=== PATIENT | female | born 1985 | race Caucasian/White ===

== ENCOUNTER 2022-08-16 03:59 | Emergency (ER) | payer BC ==
[~2022-08-16] VITALS: Ht 172.7 cm; Wt 70.3 kg
--- NOTE | 2022-08-16 06:08 | NUR ---
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 PT AAOX4, AMBULATORY, IN NAD, IN BED LAYING COMFORTABLY, VITALS CHECKED.
--- NOTE | 2022-08-16 06:22 | NUR ---
URINE COLLECTED AND SENT TO LAB
[2022-08-16] MEDS ORDERED: ONDANSETRON HCL/PF 4 MG/2 ML VIAL IVP ONE (06:30)
[2022-08-16] MEDS ORDERED: MAG HYDROX/AL HYDROX/SIMETH 30 ML UDC PO ONE (06:30)
[2022-08-16] MEDS ORDERED: IV NS 0.9% 1,000 ML BAG IV ONE (06:30)
[2022-08-16] MEDS ORDERED: PANTOPRAZOLE 40 MG VIAL IV ONE (06:30)
[2022-08-16] MEDS ORDERED: LIDOCAINE VISCOUS 2% UD 15 ML UDC MM ONE (06:30)
[2022-08-16] MEDS ORDERED: MAG HYDROX/AL HYDROX/SIMETH 30 ML UDC ONE (06:35)
[2022-08-16] MEDS ORDERED: LIDOCAINE VISCOUS 2% UD 15 ML UDC ONE (06:35)
[2022-08-16] MEDS ORDERED: ONDANSETRON HCL/PF 4 MG/2 ML VIAL ONE (06:35)
[2022-08-16] MEDS ORDERED: PANTOPRAZOLE 40 MG VIAL ONE (06:35)
--- NOTE | 2022-08-16 06:40 | NUR ---
20GA TO RIGHT AC ESTABLISHED; BLOOD WORK COLLECTED, SENT TO LAB
[2022-08-16 06:54] LABS: BILIRUBIN,URINE NEGATIVE (NEGATIVE); COLOR,URINE YELLOW (YELLOW); LEUKOCYTE ESTERASE ,URINE NEGATIVE (NEGATIVE); NITRITE, URINE NEGATIVE (NEGATIVE); PROTEIN,URINE NEGATIVE (NEGATIVE); UGLUCOSE NEGATIVE (NEGATIVE); UROBILINOGEN,URINE 0.2 EU/dL (0.2)
--- NOTE | 2022-08-16 07:00 | NUR ---
US TECH AT BEDSIDE
[2022-08-16 07:05] LABS: BASOPHILS % (AUTO) 0.4 % (0.0-2.0); EOSINOPHILS % (AUTO) 12.7 % (0.0-6.0); HEMATOCRIT 36 % (33-45); HEMOGLOBIN 11.7 g/dL (11.5-14.8); LYMPHOCYTES # (AUTO) 2.2 K/uL (0.8-4.8); LYMPHOCYTES % (AUTO) 24.8 % (20.0-44.0); MEAN CORPUSCULAR HGB CONC 33 g/dl (31.0-36.0); MEAN CORPUSCULAR VOLUME 94 fL (82-100); MONOCYTES # (AUTO) 0.4 K/uL (0.1-1.30); MONOCYTES % (AUTO) 4.6 % (2.0-12.0); NEUTROPHILS % (AUTO) 57.5 % (43.0-81.0); PLATELET COUNT (AUTO) 254 K/uL (150-450); RED BLOOD CELL COUNT(AUTO) 3.81 MIL/uL (4.0-5.2); WHITE BLOOD COUNT (AUTO) 8.7 K/uL (4.3-11.0)
--- NOTE | 2022-08-16 07:10 | NUR ---
RECEIVED PT FROM BUN RN PT AWAKE AND ALERT US IN PROCESS AT BED SIDE
--- NOTE | 2022-08-16 07:10 | NUR ---
REPORT GIVEN TO SHAYLA FOR MELANI
[2022-08-16 07:26] LABS: CALCIUM, SERUM 9.1 mg/dL (8.5-10.1); CREATININE 0.8 mg/dL (0.6-1.3); POTASSIUM 4.5 mmol/L (3.5-5.1)
[2022-08-16 07:30] LABS: ALBUMIN 3.7 g/dL (3.4-5.0); BILIRUBIN,DIRECT 0.1 mg/dL (0.0-0.2); BILIRUBIN,TOTAL 0.2 mg/dL (0.2-1.0); TOTAL PROTEIN, SERUM 7.4 g/dL (6.4-8.2)
[2022-08-16] MEDS ORDERED: OMEP40CA21 PO (07:55)
--- NOTE | 2022-08-16 08:00 | NUR ---
DINESES ABDOMIN PAIN NO N/V RESTING AT THIS TIME
--- NOTE | 2022-08-16 08:15 | NUR ---
AT BED SIDE SPOOKING WITH PT ABOUT PLAN OF CARE and tx
--- NOTE | 2022-08-16 08:38 | NUR ---
IV removed. Catheter intact and site benign. Pressure and 4x4 applied to site. No bleeding noted.
--- NOTE | 2022-08-16 08:40 | NUR ---
Patient discharged to home in stable condition. Written and verbal after care instructions given. Patient verbalizes understanding of instruction.
[2022-08-16 08:42] VITALS: BP 105/61; TEMP 98.7
== END 2022-08-16 08:47 | disposition home or self-care (01) ==
LOC: EDUNIT# 03:59 → ER 04:19
DX: R10.13 Epigastric pain (principal); Z79.899 Other long term (current) drug therapy
CPT/HCPCS: 99285; 96374; 76705; 71045; 96361; 96375; 85025; 80048; 83690; 80076; 84703; 81003; 36415; J2405; J7030; C9113

== ENCOUNTER 2022-10-23 00:37 | Emergency (ER) | payer BC ==
[~2022-10-23] VITALS: Ht 175.3 cm; Wt 67.1 kg
[~2022-10-23 00:37] MED LIST: OMEP40CA21 PO
[2022-10-23] MEDS ORDERED: ONDANSETRON HCL/PF 4 MG/2 ML VIAL ONE (02:29)
[2022-10-23] MEDS ORDERED: FAMOTIDINE/PF INJ 20 MG/2 ML VIAL IV ONE (02:29)
[2022-10-23] MEDS ORDERED: MAG HYDROX/AL HYDROX/SIMETH 30 ML UDC ONE (02:29)
[2022-10-23] MEDS ORDERED: LIDOCAINE VISCOUS 2% UD 15 ML UDC ONE (02:29)
[2022-10-23] MEDS: FAMOTIDINE/PF INJ 20 MG/2 ML VIAL IV ONE (02:43)
[2022-10-23] MEDS: ONDANSETRON HCL/PF 4 MG/2 ML VIAL IVP ONE (02:43)
[2022-10-23] MEDS: MAG HYDROX/AL HYDROX/SIMETH 30 ML UDC PO ONE (02:43)
[2022-10-23] MEDS: LIDOCAINE VISCOUS 2% UD 15 ML UDC MM ONE (02:43)
[2022-10-23 03:00] LABS: BASOPHILS % (AUTO) 0.4 % (0.0-2.0); EOSINOPHILS # (AUTO) 0.8 K/uL (0.0-0.7); EOSINOPHILS % (AUTO) 9.2 % (0.0-6.0); HEMATOCRIT 35 % (33-45); HEMOGLOBIN 11.5 g/dL (11.5-14.8); LYMPHOCYTES # (AUTO) 1.9 K/uL (0.8-4.8); LYMPHOCYTES % (AUTO) 22.6 % (20.0-44.0); MEAN CORPUSCULAR HEMOGLOBIN 31 PG (26.0-33.0); MEAN CORPUSCULAR HGB CONC 33 g/dl (31.0-36.0); MEAN CORPUSCULAR VOLUME 95 fL (82-100); MONOCYTES # (AUTO) 0.4 K/uL (0.1-1.30); MONOCYTES % (AUTO) 4.7 % (2.0-12.0); NEUTROPHILS # (AUTO) 5.4 K/uL (1.8-8.9); NEUTROPHILS % (AUTO) 63.1 % (43.0-81.0); PLATELET COUNT (AUTO) 244 K/uL (150-450); RED CELL DISTRIBUTION WIDTH 14.1 % (11.5-15.0); WHITE BLOOD COUNT (AUTO) 8.6 K/uL (4.3-11.0)
[2022-10-23 03:05] LABS: CALCIUM, SERUM 8.8 mg/dL (8.5-10.1); CREATININE 0.7 mg/dL (0.6-1.3); POTASSIUM 4.1 mmol/L (3.5-5.1)
[2022-10-23 03:11] LABS: ALBUMIN 3.7 g/dL (3.4-5.0); BILIRUBIN,DIRECT 0.1 mg/dL (0.0-0.2); BILIRUBIN,TOTAL 0.2 mg/dL (0.2-1.0); TOTAL PROTEIN, SERUM 7.2 g/dL (6.4-8.2)
[2022-10-23 04:25] LABS: APPEARANCE,URINE CLEAR (CLEAR); BILIRUBIN,URINE NEGATIVE (NEGATIVE); BLOOD, URINE TRACE-INTA Ery/uL (NEGATIVE); COLOR,URINE YELLOW (YELLOW); KETONES,URINE NEGATIVE (NEGATIVE); LEUKOCYTE ESTERASE ,URINE NEGATIVE (NEGATIVE); NITRITE, URINE NEGATIVE (NEGATIVE); PH,URINE 5.5 (5.0-8.0); PROTEIN,URINE NEGATIVE (NEGATIVE); UGLUCOSE NEGATIVE (NEGATIVE); UROBILINOGEN,URINE 0.2 EU/dL (0.2)
[2022-10-23 04:27] LABS: PREGNANCY TEST URINE QUAL NEGATIVE (NEGATIVE)
[2022-10-23] MEDS ORDERED: ONDA4TAB11 PO (04:54)
[2022-10-23 05:02] VITALS: BP 105/68; TEMP 98.1; O2SAT 99
== END 2022-10-23 05:03 | disposition home or self-care (01) ==
LOC: ER 00:39
DX: R10.13 Epigastric pain (principal); R11.2 Nausea with vomiting, unspecified
CPT/HCPCS: 99284; 96374; 96375; 85025; 80048; 83690; 80076; 84703; 81003; 36415; J3490; J2405